=== PATIENT | female | born 1980 | race Caucasian/White ===

== ENCOUNTER 2018-08-18 21:20 | Emergency (ER) | payer OTHER ==
[2018-08-19] MEDS: morphine 4 MG/ML VIAL IM (01:03)
[2018-08-19] MEDS: ONDANSETRON (ODT) 4 MG TAB ODT (01:03)
[2018-08-19] MEDS: KETOROLAC 30 MG INJ IM (01:07)
[2018-08-19 01:12] LABS: URINE BLOOD (Dip) POC Negative (NEGATIVE); URINE GLUCOSE (Dip) POC Negative (NEGATIVE); URINE KETONES (Dip) POC 1+ (NEGATIVE); URINE LEUKOCYTE EST (Dip) POC Negative (NEGATIVE); URINE NITRITE (Dip) POC Negative (NEGATIVE); URINE TOTAL PROTEIN POC Negative (NEGATIVE)
== END 2018-08-19 03:12 | disposition home or self-care (01) ==
LOC: FTE 21:20
DX: M54.41 Lumbago with sciatica, right side (principal)
CPT/HCPCS: 72100; 81003; 81025; 96372; 99284-25